=== PATIENT | male | born 1995 | race Caucasian/White ===

== ENCOUNTER 2022-07-10 15:08 | Emergency (ER) | payer OTHER ==
[~2022-07-10] VITALS: Ht 180.3 cm; Wt 65.8 kg
[2022-07-10 15:20] VITALS: BP 124/83
--- NOTE | 2022-07-10 15:22 | NUR ---
PT AMB TO BED 3
[2022-07-10] MEDS ORDERED: LIDOCAINE MPF 2% 100 MG/5 ML VIAL INJ ONE (15:45)
--- NOTE | 2022-07-10 15:45 | NUR ---
27YO MALE PT C/O HEAD INJURY XTODAY. STATES A PANEL FELL ON HEAD WHILE AT WORK. -LOC -BLOODTHINNERS. PRESENTS WITH OPEN LAC BACK OF HEAD , MILD ACTIVE BLEEDING. DENIES N/V/D , VISION CHANGES. PT AAOX4, HOB POSITIONED PER COMFORT HX:DENIES NKA
[2022-07-10] MEDS ORDERED: LIDOCAINE MPF 1% 5 ML ONE (16:03)
[2022-07-10] MEDS ORDERED: LIDOCAINE MPF 1% 10 MG/ML VIAL INJ ONE (16:10)
[2022-07-10] MEDS ORDERED: ACET-10509 PO (16:21)
--- NOTE | 2022-07-10 16:39 | NUR ---
Patient discharged with v/s stable. Written and verbal after care instructions FOR HEAD INJURY AND LAC CARE given and explained. Patient alert, oriented and verbalized understanding of instructions. Ambulatory with steady gait. All questions addressed prior to discharge. ID band removed. Patient advised to follow up with PMD. Rx of IBUPROFEN XTRA given. Opportunity to ask questions provided and answered.
--- NOTE | 2022-07-10 16:47 | NUR ---
The patient's care was reviewed and supervised by [facility], RN.
== END 2022-07-10 16:39 | disposition home or self-care (01) ==
LOC: MED 15:08
DX: S01.01XA Laceration without foreign body of scalp, initial encounter (principal); W20.8XXA Other cause of strike by thrown, projected or falling object, initial encounter; Y93.89 Activity, other specified; Y92.89 Other specified places as the place of occurrence of the external cause; Y99.0 Civilian activity done for income or pay
CPT/HCPCS: 12002; 90471; 90715; 99283; J2001

== ENCOUNTER 2022-07-12 09:09 | Emergency (ER) | payer OTHER ==
[~2022-07-12] VITALS: Ht 180.3 cm; Wt 58.1 kg
[~2022-07-12 09:09] MED LIST: ACET-10509 PO
[2022-07-12 09:22] VITALS: BP 133/76
--- NOTE | 2022-07-12 09:25 | NUR ---
PTY AMBULATED TO ER BED 9
--- NOTE | 2022-07-12 09:40 | NUR ---
evaluating the patient
--- NOTE | 2022-07-12 09:51 | NUR ---
Patient discharged with v/s stable. Written and verbal after care instructions given and explained. Patient verbalized understanding. Ambulatory with steady gait. All questions addressed prior to discharge. Advised to follow up with PMD.
== END 2022-07-12 09:51 | disposition home or self-care (01) ==
LOC: MED 09:09
DX: Z48.01 Encounter for change or removal of surgical wound dressing (principal); Z79.899 Other long term (current) drug therapy
CPT/HCPCS: 99281